=== PATIENT | male | born 1990 | race Hispanic/Latino ===

== ENCOUNTER 2018-06-07 15:16 | Emergency (ER) | payer OTHER ==
[~2018-06-07] VITALS: Ht 154.9 cm; Wt 68.2 kg
[~2018-06-07 15:16] MED LIST: MEDDOSEPAK PO; NAPROSYN375 MG OR; NAPROSYN500 MG PO; NO; TYLENOL325 MG PO; ZOVIRAX800 MG PO
[2018-06-07] MEDS ORDERED: TORADOL PO (16:29)
[2018-06-07 16:34] VITALS: BP 152/89
== END 2018-06-07 16:40 | disposition home or self-care (01) | DRG 605 ==
LOC: ED 15:16
DX: S00.93XA Contusion of unspecified part of head, initial encounter (principal); S40.012A Contusion of left shoulder, initial encounter; S60.222A Contusion of left hand, initial encounter; V53.5XXA Driver of pick-up truck or van injured in collision with car, pick-up truck or van in traffic accident, initial encounter; Y92.411 Interstate highway as the place of occurrence of the external cause